=== PATIENT | male | born 1945 | race Caucasian/White ===

== ENCOUNTER → 2016-11-25 | Outpatient (CLI) | payer MEDICARE, OTHER | END | disposition home or self-care (01) | LOC: GMAM 10:25 | PROVIDERS: ATTEND Family Medicine | DX: Z12.5 Encounter for screening for malignant neoplasm of prostate (principal) ==

== ENCOUNTER → 2016-12-11 | Outpatient (CLI) | payer MEDICARE, OTHER | END | disposition home or self-care (01) | LOC: LAB.O 10:49 | PROVIDERS: ATTEND Internal Medicine | DX: G47.33 Obstructive sleep apnea (adult) (pediatric) (principal); J30.9 Allergic rhinitis, unspecified ==

== ENCOUNTER → 2016-12-17 | Outpatient (CLI) | payer MEDICARE, OTHER ==
--- NOTE | 2016-12-17 16:53 | CT ---
EXAM DESCRIPTION: Sinuses CLINICAL HISTORY: SINUSITIS COMPARISON: None Available. TECHNIQUE: CT of the sinuses is performed with direct axial imaging technique. Multiplanar reformatted images are reviewed post along with source images.This exam was performed according to our departmental dose-optimization program, which includes automated exposure control, adjustment of the mA and/or kV according to patient size and/or use of iterative reconstruction technique. FINDINGS: Mucosal sinus disease is observed in the floor of both maxillary antra. Anterior ethmoid sinus air cell disease is also observed. Minimal mucosal sinus disease is observed in the floor of the left sphenoid sinus air cell. Mild mucosal sinus disease is observed in the floor of both frontal sinuses. The nasal septum is midline. The mastoid sinus air cells appear clear. Both ostiomeatal complexes are occluded at the ostia. The infundibulum appears clear. The orbits as imaged are normal. No intracranial abnormality is seen. IMPRESSION: Mild pansinusitis is observed. The exam does reveal occlusion of both ostiomeatal complexes at the ostia. Electronically signed by: Tacho Ramirez MD 12/17/2016 4:53 PM CDT
== END | disposition home or self-care (01) ==
LOC: CT 09:38
PROVIDERS: ATTEND Family Medicine
DX: J01.90 Acute sinusitis, unspecified (principal)

== ENCOUNTER → 2017-06-25 | Outpatient (CLI) | payer MEDICARE, OTHER | END | disposition home or self-care (01) | LOC: LAB.O 14:08 | PROVIDERS: ATTEND Urology | DX: R97.20 Elevated prostate specific antigen [PSA] (principal) ==

== ENCOUNTER → 2018-03-09 | Outpatient (CLI) | payer MEDICARE, OTHER | LOC: GMAM 14:45 | PROVIDERS: ATTEND Family Medicine | DX: J30.1 Allergic rhinitis due to pollen (principal) ==

== ENCOUNTER → 2018-03-13 | Outpatient (CLI) | payer MEDICARE, OTHER ==
--- NOTE | 2018-03-13 15:09 | CT ---
EXAM DESCRIPTION: Chest w/Contrast : Computed Tomography. CLINICAL HISTORY: ABNORMAL CHEST XRAY. Enlarging density in the left lung base. COMPARISON: Chest radiograph from outside facility 03/09/2018. TECHNIQUE: Spiral-axial scans at 5.0 x 5.0 mm intervals through the lungs and thorax with IV contrast. 2.5 x 5.0 mm lung algorithm axial reconstructions. Coronal and sagittal 2.0 Mm reconstructions. No adverse reactions. Total Exam DLP: 719.34 mGy-cm. This exam was performed according to our departmental dose-optimization program which includes automated exposure control, adjustment of the mA and/or kV according to patient size and/or use of iterative reconstruction technique; to reduce radiation dose to as low as reasonably achievable (ALARA). FINDINGS: Minimal bilateral apical pleural thickening. Small nodular density associated with the pleura in the left upper lobe. 5 Millimeter nodule with smooth borders subpleural, with flat subpleural nodule in the edge abutting a small fissure and a small pleural extension, lateral left lower lobe no calcification, series 4, image 89. Small subcentimeter bleb in the base of the right upper lobe. 8 mm solid nodule with spiculations appears to be associated with the anterior horizontal fissure and essentially two-dimensional in the axial plane with minimal craniocaudal component partially in the anterior right upper lobe base (series 4, image 67. 4 mm solid nodule medial recess of the right lower lobe axial series 4, image 93. Mostly smooth bordered with questionable lobulation. No consolidation or pleural effusion or pneumothorax bilaterally. No larger nodules or masses. Thyroid gland homogeneously enhancing. Small lymph nodes in the mediastinum and hilum, except for a 1.2 cm short axis subcarinal node.. Nonreactive axillary lymph nodes. Atherosclerotic calcifications in the great vessels. Bilateral adrenal glands are unremarkable. No subdiaphragmatic peritoneal fluid. Spleen is unremarkable. Multiple radiodense gallstones in the gallbladder. Included abdomen otherwise negative. Minimal thoracic spondylosis. IMPRESSION: 1. 5 mm smooth nodule with flat edge abutting a fissure in the left lower lobe. 4 mm solid nodule in the medial recess of the right lower lobe with smooth and lobulated borders. 8 mm semi-solid nodule which is essentially two-dimensional on the inferior aspect of the right upper lobe associated with the horizontal fissure. Consider follow-up CT scan in 6 months, according to [facility] Best Practice guidelines and Fleischner Society 2017 recommendations for some solid nodules, parapharyngeal nodules, and solid nodules. Please see below.* 2. 1.2 cm short axis node in the subcarinal region with no other enlarged lymph nodes in the mediastinum or hilum. Nonspecific finding. Can be evaluated along with the parenchymal nodules described above. 2017 Fleischner Society Recommendations for Subsolid Lung Nodule Follow-Up based on size (average of long- and short-axis diameters). Use most suspicious nodule for followup. Single <6 mm Ground glass: No routine follow-up <6 mm Part solid: No routine follow-up > or = 6 mm Ground glass: CT at 6-12 months to confirm persistence, then CT every 2 years until 5 years > or = 6 mm Part solid: CT at 3-6 months to confirm persistence, If unchanged and solid component remains<6mm, annual CT should be performed for 5 years Electronically signed by: José Antonio Hodges MD 03/13/2018 3:08 PM CDT
== END ==
LOC: CT 08:46
PROVIDERS: ATTEND Family Medicine
DX: R91.8 Other nonspecific abnormal finding of lung field (principal)

== ENCOUNTER → 2018-06-23 | Outpatient (CLI) | payer MEDICARE, OTHER ==
--- NOTE | 2018-06-23 12:07 | CT ---
EXAM DESCRIPTION: Chest w/o Contrast CLINICAL HISTORY: 72 years Male, PULMONARY NODULE COMPARISON: 13 March 2018 TECHNIQUE: Transaxial images were obtained without intravenous contrast media. Sagittal and coronal reconstruction was performed.This exam was performed according to our departmental dose-optimization program, which includes automated exposure control, adjustment of the mA and/or kV according to patient size and/or use of iterative reconstruction technique. FINDINGS: A small hiatus hernia is observed. No adrenal masses are detected. No pleural fluid is seen. The thyroid is normal in appearance. No pathologic axillary adenopathy is observed. No hilar or mediastinal adenopathy is seen. A right-sided. Fissural nodule is observed between the right upper and right middle lobes. Its felt to be benign in nature. A persistent ill-defined nodule is observed at the left lung base in the lingula. It remains unchanged from the previous exam. Degenerative changes are seen in the thoracic spine. IMPRESSION: Benign-appearing nodules are observed in both lungs unchanged from the previous exam. Follow-up in a year is recommended. Electronically signed by: Tacho Ramirez MD 06/23/2018 12:06 PM [facility]
== END ==
LOC: CT 09:51
PROVIDERS: ATTEND Family Medicine
DX: R91.1 Solitary pulmonary nodule (principal)

== ENCOUNTER → 2018-12-16 | Outpatient (CLI) | payer MEDICARE, OTHER | LOC: LAB.O 13:45 | PROVIDERS: ATTEND Urology | DX: R97.20 Elevated prostate specific antigen [PSA] (principal) ==

== ENCOUNTER → 2018-12-28 | Outpatient (CLI) | payer MEDICARE, OTHER ==
--- NOTE | 2018-12-29 11:40 | CT ---
EXAM DESCRIPTION: Chest w/o Contrast CLINICAL HISTORY: LUNG NODULE EVALUATE FOR GROWTH COMPARISON: June 23, 2018 March 13, 2018 TECHNIQUE: Chest CT was performed without IV contrast. This exam was performed according to our departmental dose-optimization program, which includes automated exposure control, adjustment of the mA and/or kV according to patient size and/or use of iterative reconstruction technique. FINDINGS: The thyroid and thoracic inlet are unremarkable. There is a single borderline enlarged prevascular lymph node measuring 11 or 12 mm short axis diameter, stable from June,. Nonenlarged lymph nodes are noted elsewhere in the mediastinum. No esophageal wall thickening. No pleural or pericardial effusion. Mural calcification in the thoracic aorta without aneurysm. The central airways are clear. No airspace consolidation or lung mass. A poorly defined 6 mm nodular density in the left lower lobe (series 4 image 97) probably represents a vascular branch point rather than a true lung nodule and is stable from the prior study. An irregular but somewhat nodular 9 mm density in the right middle lobe is also stable from the prior exam and likely represents a vascular branch point. I do not believe this represents a true lung nodule. No new lung nodule. Visualized portions of the upper abdomen show calcified gallstones in the gallbladder neck without pericholecystic inflammation. A duodenal diverticulum is suspected but only partially visualized. The upper abdomen is otherwise unremarkable for noncontrast technique. No fracture or pneumothorax. IMPRESSION: Vascular branch points versus subcentimeter noncalcified nodules in both lungs as detailed above, all stable from prior exams dating back to March 13, 2018. If the patient has risk factors for neoplasm, follow-up chest CT in one year is recommended. If stable at that time, no further follow-up imaging is recommended. If the patient has no risk factors for neoplasm, no further follow-up imaging is recommended. Cholelithiasis, partially visualized without cholecystitis. Electronically signed by: Timmy Swartz MD 12/29/2018 11:38 AM CDT
== END ==
LOC: CT 09:40
PROVIDERS: ATTEND Internal Medicine Critical Care Medicine
DX: R91.1 Solitary pulmonary nodule (principal)

== ENCOUNTER → 2019-05-21 | Outpatient (CLI) | payer MEDICARE, OTHER | LOC: GMAM 10:35 | PROVIDERS: ATTEND Family Medicine | DX: Z12.5 Encounter for screening for malignant neoplasm of prostate (principal) ==

== ENCOUNTER → 2019-12-31 | Outpatient (CLI) | payer MEDICARE, OTHER ==
--- NOTE | 2020-01-04 11:04 | CT ---
EXAM DESCRIPTION: Chest w/o Contrast CLINICAL HISTORY: 74 years, Male, SOLITARY PULMONARY NODULE COMPARISON: Previous chest CT without contrast December 28, 2018 TECHNIQUE: Thin-section noncontrast axial CT images are obtained according to our protocol. Reconstructed MPR images are created and reviewed as well. FINDINGS: Lungs: No consolidating pulmonary infiltrate or groundglass infiltrate. Density associated with the right minor fissure and prominent vessels appear stable. On coronal and sagittal images this appears linear and vascular. The configuration on the coronal and sagittal images is stable compared to December 28, 2018. No worrisome pulmonary mass or nodule. Intrapulmonary lymph node in the peripheral left lower lobe is unchanged from previous measuring 4 mm short axis dimension. Mediastinum: Density in the anterior mediastinum may be a thymic cyst measuring -9.5 Hounsfield units in density and approximately 1.5 cm in size. This was present on the previous study measuring approximately 1.8 cm. No interval growth to suggest neoplastic process. Middle mediastinal lymph nodes are mildly prominent probably reactive in size. Prominent central pulmonary arteries. Otherwise normal vascular contours. Heart size is normal with small amount of pericardial fluid slightly increased compared to previous. Chest wall/axilla: No mass or adenopathy. Lower neck/supraclavicular: No mass or adenopathy. Normal thyroid gland. Upper abdomen: Calcified stones in the gallbladder. Otherwise unremarkable upper abdominal viscera. IMPRESSION: No acute process in the chest. No change compared to previous study in December 2018. Gallstones. This exam was performed according to our departmental dose-optimization program, which includes automated exposure control, adjustment of the mA and/or kV according to patient size and/or use of iterative reconstruction technique. Total DLP equals 530.4 mGycm. Electronically signed by: Jeff Jay MD 01/04/2020 10:26 AM CDT
== END ==
LOC: CT 10:00
PROVIDERS: ATTEND Family Medicine
DX: R91.1 Solitary pulmonary nodule (principal); K80.20 Calculus of gallbladder without cholecystitis without obstruction

== ENCOUNTER → 2020-01-03 | Outpatient (CLI) | payer MEDICARE, OTHER | LOC: GMAM 11:30 | PROVIDERS: ATTEND Family Medicine | DX: R53.82 Chronic fatigue, unspecified (principal); R97.20 Elevated prostate specific antigen [PSA]; E55.9 Vitamin D deficiency, unspecified; R73.9 Hyperglycemia, unspecified; I11.9 Hypertensive heart disease without heart failure ==

== ENCOUNTER → 2020-05-11 | Outpatient (CLI) | payer MEDICARE, OTHER ==
--- NOTE | 2020-05-11 15:47 | US ---
EXAM DESCRIPTION: Carotid Duplex: ULTRASOUND. CLINICAL HISTORY: 74 years Male STENOSIS. Right Endarterectomy 2012 COMPARISON: None. TECHNIQUE: Transcutaneous scanning utilizing vásquez-scale and Doppler modes to evaluate the bilateral carotid systems and vertebral arteries. Percentage of diameter of stenosis or no stenosis recorded will be based upon NASCET criteria. FINDINGS: Peak systolic/end diastolic velocities (CM-Sec) CCA Right 85/11 Left 118/16. ICA Right proximal 58/16, distal 94/7. Left proximal 45/15, mid PA/19. Vertebral Right 27/6 Left 36/9. ECA (PS Only) Right 94 left 85. ICA/CCA peak systolic velocity ratio: Right 1.1 Left 0.6 ICA/CCA end diastolic velocity ratio: Right 0.7 Left 1.2 Vertebral arteries: antegrade flow. Comments: Bilateral atherosclerotic calcifications. 15% diameter and area stenosis in the proximal right ICA. Less than 60% area and diameter stenosis in the left common carotid bulb. IMPRESSION: 1. Doppler evaluation of the bilateral carotid systems and vertebral arteries shows no hemodynamically significant stenoses (less than 70%). 60%. Diameter stenosis in the left common carotid bulb. 2. Moderate amount of plaque in the carotid arteries bilaterally. Bilateral vertebral arteries showed antegrade-cephalad flow. Electronically signed by: José Antonio Hodges MD 05/11/2020 3:45 PM CDT
== END ==
LOC: US 11:33
PROVIDERS: ATTEND Nurse Practitioner Family
DX: I65.23 Occlusion and stenosis of bilateral carotid arteries (principal); Z79.890 Hormone replacement therapy